=== PATIENT | male | born 1980 | race Caucasian/White ===

== ENCOUNTER 2023-03-19 18:43 | Emergency (ER) | payer MEDICAID, OTHER ==
[~2023-03-19] VITALS: Ht 172.7 cm; Wt 71.4 kg
[2023-03-19 18:53] VITALS: BP 117/77; PULSE 109; RESP 20; TEMP 98.8; O2SAT 98
--- NOTE | 2023-03-19 21:07 | NUR ---
PT TO BED 06
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
--- NOTE | 2023-03-19 21:40 | NUR ---
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 LABS OBTAINED
[2023-03-19] MEDS ORDERED: ITRA100C2 PO (23:18)
[2023-03-19] MEDS ORDERED: IBUPROFEN 600 MG TAB ONE (23:38)
[2023-03-19 23:44] VITALS: BP 117/85; PULSE 80; RESP 13; O2SAT 98
--- NOTE | 2023-03-19 23:44 | NUR ---
Patient discharged with v/s stable. Written and verbal after care instructions given and explained. Patient verbalized understanding. Ambulatory with steady gait. All questions addressed prior to discharge. Advised to follow up with PMD.
[2023-03-19] MEDS ORDERED: IBUPROFEN 600 MG TAB PO ONE (23:55)
--- NOTE | 2023-03-19 23:56 | NUR ---
The patient's care was reviewed and supervised by Monserrat Love RN, RN.
== END 2023-03-19 23:44 | disposition home or self-care (01) ==
LOC: MED 18:43
DX: B42.89 Other forms of sporotrichosis (principal); J45.909 Unspecified asthma, uncomplicated; Z86.73 Personal history of transient ischemic attack (TIA), and cerebral infarction without residual deficits; Z88.5 Allergy status to narcotic agent; Z88.6 Allergy status to analgesic agent; Z79.899 Other long term (current) drug therapy
CPT/HCPCS: 87102; 99283